=== PATIENT | male | born 1995 | race Caucasian/White ===

== ENCOUNTER 2020-02-02 14:54 | Emergency (ER) | payer OTHER ==
[~2020-02-02] VITALS: Ht 152.4 cm; Wt 81.6 kg
[2020-02-02] MEDS ORDERED: AMOX1TAB5 PO (16:25)
[2020-02-02] MEDS ORDERED: KETO10TA2 PO (16:25)
== END 2020-02-02 18:02 | disposition home or self-care (01) ==
LOC: ER 14:54
DX: S61.451A Open bite of right hand, initial encounter (principal); W56.51XA Bitten by other fish, initial encounter; Y93.89 Activity, other specified; Y92.832 Beach as the place of occurrence of the external cause; Y99.8 Other external cause status